=== PATIENT | male | born 1990 | race African-American/Black ===

== ENCOUNTER 2017-07-06 11:58 | Emergency (ER) | payer MEDICAID, SELFPAY ==
[2017-07-06] MEDS ORDERED: Ketorolac Tromethamine 30 MG/ML VIAL ONE (13:25)
[2017-07-06] MEDS ORDERED: cefTRIAXone\\ROCEPHIN 250 MG VIAL ONE (13:25)
[2017-07-06] MEDS ORDERED: Lidocaine 1% PF 5 ML VIAL ONE (13:25)
[2017-07-06] MEDS ORDERED: Ciprofloxacin HCL/Dexameth Otic Drops 7.5 ml Bottle ONE (13:36)
== END 2017-07-06 13:40 | disposition home or self-care (01) ==
LOC: ERS 11:58
DX: H60.91 Unspecified otitis externa, right ear (principal); H66.91 Otitis media, unspecified, right ear; F17.210 Nicotine dependence, cigarettes, uncomplicated
CPT/HCPCS: 96372; J0696; J1885; J2001

== ENCOUNTER 2017-10-07 18:57 | Emergency (ER) | payer SELFPAY ==
--- NOTE | 2017-10-07 19:38 | RAD ---
PA AND LATERAL OF THE CHEST: 10/07/17 INDICATION: Chest congestion, nasal congestion, headache. COMPARISON: None. FINDINGS: No focal consolidation, pleural effusion, or pneumothorax is evident. Heart size and pulmonary vascul ature is within normal limits. No acute osseous abnormality is evident. IMPRESSION: No acute cardiopulmonary abnormality. POS: [id number]
[2017-10-07] MEDS ORDERED: Acetaminophen 500 MG TAB ONE (19:48)
== END 2017-10-07 21:47 | disposition left against medical advice (07) ==
LOC: ERS 18:57
DX: Z53.21 Procedure and treatment not carried out due to patient leaving prior to being seen by health care provider (principal)
CPT/HCPCS: 71046; 87804

== ENCOUNTER 2018-09-19 13:50 | Emergency (ER) | payer SELFPAY | END 2018-09-19 13:56 | disposition left against medical advice (07) | LOC: ERS 13:50 | DX: Z53.21 Procedure and treatment not carried out due to patient leaving prior to being seen by health care provider (principal) ==